=== PATIENT | female | born 1955 | race African-American/Black ===

== ENCOUNTER 2020-10-27 13:02 | Emergency (ER) | payer MEDICARE, MEDICAID ==
[~2020-10-27] VITALS: Ht 165.1 cm; Wt 85.0 kg
[2020-10-27 14:22] VITALS: BP 148/84
== END 2020-10-27 14:23 | disposition home or self-care (01) ==
LOC: ER 14:05
DX: H60.91 Unspecified otitis externa, right ear (principal); M19.90 Unspecified osteoarthritis, unspecified site; M79.7 Fibromyalgia; Z90.710 Acquired absence of both cervix and uterus; Z88.5 Allergy status to narcotic agent
CPT/HCPCS: 99281